=== PATIENT | male | born 1985 | race Caucasian/White ===

== ENCOUNTER 2021-08-04 20:24 | Observation (INO) ==
--- NOTE | 2021-08-04 20:51 | Emergency Department Note ---
Impression & Plan Hematoma DC ED Provider Note HPI: The patient is a 36-year-old gentleman who presents the emergency department with a chief complaint of left breast pain, patient is status post breast reduction surgery for gynecomastia this morning with Dr. Terrazas of plastic surgery. Patient states about an hour and a half prior to arrival to the ED he began to have some acute onset pain and swelling in the left breast area. On arrival here to the ED he is hemodynamically stable, he does have a postop surgical binder over his chest, bilateral CHARITY drains in place, states he has had some increased drainage from the left breast. Patient states he is actually already been in touch with Dr. Terrazas who is on the way to the emergency room to evaluate the patient. ROS: -Skin: Postoperative swelling/hematoma of the left breast *10 point review systems was conducted and is otherwise negative unless stated above *Outpatient medications and allergy history reviewed PE: General: Alert, NAD HEENT: Normocephalic, atraumatic Eyes: Extraocular eye movement is intact, no scleral erythema Pulmonary: Clear to auscultation bilaterally, no wheezing Cardio: Regular rate and rhythm GI: Abdomen is soft, nontender : No suprapubic tenderness MSK: No evidence of trauma or malformation of the extremities, no edema Skin: No evidence of rash, surgical binder is in place across the chest, patient does have significant swelling of the left pectoral area, bilateral CHARITY drains a ppear in place with appropriate drainage Neuro: Alert, no focal deficits Psychiatric: Cooperative monitoring analyst: - An order was placed for continuous cardiac monitoring - Patient was noted to be in sinus rhythm with rate of 80 Medical Decision Making: Patient presented to the emergency department with postoperative hematoma of the left breast area, he had breast reduction surgery done this morning for gynecomastia. Dr. Terrazas did evaluate the patient at the bedside, decision wa s made that the patient will undergo operative intervention for drainage of the hematoma by Dr. Terrazas. Lab work was obtained here in the ED and hemoglobin is noted to be stable, patient remained hemodynamically stable here in the ED, patient was transferred to the operating room in stable condition for further care. Diagnosis: 1. Postoperative hematoma of the left chest Disposition: Transfer to operating room Aram Benton DO Emergency Medicine Past Med/Surg History Medical History GERD (gastroesophageal reflux disease) History of asthma A CHILD/NO INHALER Low back pain Primary hypogonadism in male Seasonal allergies Surgical History Cyst RT ANKLE REMOVED *BENIGN History of esophagogastroduodenoscopy (EGD) History of surgical removal of pilonidal cyst [place] teeth removed Family History Grandmother (Paternal) Family history of diabetes mellitus Father Family history of diabetes mellitus Other Alzheimer disease Colorectal cancer Diabetes No family history of adverse response to anesthesia Social History (Updated 02/16/21 @ 17:04 by Fabio Lorenzana) Smoking Status: Former smoker Tobacco Type: Cigarettes Cigarettes Per Day: HAVE NOT USED CIG FOR 1 MONTH/ADVISED>PT UNDERSTANDS; Second Hand Exposure: Yes ( A CHILD); Hx Alcohol Use: Yes Alcohol Intake Frequency: 2-3 x/Week Hx Substance Use: No Preferred Language: Japanese 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 Required: No Beliefs That Will Affect Care: None Current Living Situation: Significant Other Feels Safe at Home: Yes Sunscreen Use: Yes Assistive Devices: Glasses Allergies Allergies Allergy/AdvReac Type Severity Reaction Status Date / Time No Known Allergies Allergy Verified 08/04/21 21:01 Home Meds Home Medications Medication Instructions Recorded Confirmed famotidine 20 mg tablet 20 mg PO QAM 02/16/21 08/04/21 cetirizine 10 mg tablet (Zyrtec) 10 mg PO DAILY PRN 03/21/21 08/04/21 azelastine 137 mcg (0.1 %) nasal 1 spray INTRANASAL BID PRN 07/31/21 08/04/21 spray aerosol multivitamin 1 tab PO DAILY 07/31/21 08/04/21 acetaminophen 500 mg tablet 500 - 1,000 mg PO DIRECTED PRN 08/04/21 08/04/21 (Tylenol Extra Strength) turmeric 400 mg capsule 400 mg PO DAILY 08/04/21 08/04/21 Previous Rx's Medication Instructions Recorded oxycodone-acetaminophen 5 mg-325 1 tab PO Q4H PRN #18 tab 07/18/21 mg tablet (Endocet) Results & Data (ED) Vital Signs Vital Signs - 24 hr 08/04/21 20:30 Temperature 36.5 C Temperature Source Temporal Artery Scan Pulse Rate 76 Respiratory Rate 14 Respiratory Effort / Characteristics Non-Labored Spontaneous Respiratory Depth Normal Blood Pressure 134/84 Blood Pressure Mean 100 Pulse Oximetry 100 Oxygen Delivery Method Room Air Sepsis Recent Fever Within 48 Hours No Sepsis New/Unexplained Change in Mental Status No Sepsis Action Taken by Nursing No Action Required Laboratory Data Result diagrams: 08/04/21 20:59 08/04/21 20:59 Lab Results 08/04/21 08/04/21 08/04/21 Range/Units 20:59 20:59 20:59 WBC 9.92 (4.8-10.8) K/uL RBC 4.12 L (4.7-6.1) M/uL Hgb 12.2 L (14.0-18.0) g/dL Hct 37.4 L (42-52) % MCV 90.8 (80-100) fL MCH 29.6 (25-34) pg MCHC 32.6 (32-36) g/dL RDW Std Deviation 47.0 H (36.4-46.3) fL RDW Coeff of Placido 14.1 (11.5-14.5) % Plt Count 203 (130-400) K/uL MPV 10.3 (7.4-10.4) fL Immature Gran % (Auto) 0.1 % Neut % (Auto) 74.2 % Lymph % (Auto) 14.2 % Bryan % (Auto) 10.3 % Eos % (Auto) 1.0 % Baso % (Auto) 0.2 % Neut # (Auto) 7.36 H (1.4-6.5) K/uL Lymph # (Auto) 1.41 (1.2-3.4) K/uL Bryan # (Auto) 1.02 H (0.11-0.59) K/uL Eos # (Auto) 0.10 (0-0.5) K/uL Baso # (Auto) 0.02 (0-0.2) K/uL Immature Gran # (Auto) 0.01 (0.00-0.02) K/uL PT 12.1 H (9.0-12.0) Seconds INR 1.1 (0.9-1.1) APTT 25.4 (21.0-31.0) Seconds PTT Ratio 0.9 Sodium 134 L (136-145) mmol/L Potassium TNP Chloride 102 (98-107) mmol/L Carbon Dioxide 28 (21-32) mmol/L Anion Gap 4 (3-11) BUN 13 (6-23) mg/dl Creatinine 0.72 (0.6-1.4) mg/dl Est Cr Clr Drug Dosing 149.6 ml/min Est GFR ( Amer) 138.1 ml/min Est GFR (Non-Af Amer) 119.2 ml/min BUN/Creatinine Ratio 18.1 (10-20) Glucose 139 H (70-99(Fasting)) mg/dl Calcium 8.8 (8.5-10.1) mg/dl Total Bilirubin 0.6 (0.2-1.0) mg/dl AST TNP ALT 19 (7-52) U/L Alkaline Phosphatase 44 (34-104) U/L Total Protein 6.4 (6.0-8.3) gm/dl Albumin 4.3 (3.4-5.0) gm/dl Globulin 2.1 L (2.5-4.0) gm/dl Albumin/Globulin Ratio 2.0 (0.9-2) Imaging Data Radiologist's Impression: Chest X-Ray 08/04/21 20:43 XR chest 1V portable HISTORY: 36 years-old Male Chest Pain acute atypical chest pain COMPARISON: None TECHNIQUE: AP view of the chest FINDINGS: Surgical drains project over the chest. There is a hazy ill-defined large opacity of the left chest wall which extends outside of the thoracic cavity. Cardiac silhouette is upper limits of normal in size. No pneumothorax, pleural effusion, airspace consolidation or overt pulmonary edema. IMPRESSION: 1. No acute cardiopulmonary abnormality. 2. Surgical drains project over the chest. There is a large left chest opacity, likely correlating with the reported chest wall hematoma. ACT 112: Negative or not required by law. The above report was generated using voice recognition software. It may contain grammatical, syntax or spelling errors. Electronically signed by: Andrew Bansal M.D. 08/04/2021 9:27 PM Discharge Plan Visit Data Chief Complaint: Chest Pain Stated Complaint: POSSIBLE HEMATOMA, L SIDE OF CHEST ED Provider: Aram Benton Discharge Problem: Hematoma Patient Disposition: Admitted As Inpatient Discharge Instructions Interventions: ED Discharge Assessment Last Done: 08/04/21 21:45 Forms Stand Alone Forms: [facility] Setup Prescriptions Prescriptions: No Action oxycodone-acetaminophen [Endocet] 5-325 mg tablet 1 tab PO Q4H PRN (Reason: pain) Qty: 18 RF: 0 famotidine 20 mg tablet 20 mg PO QAM RF: 0 cetirizine [Zyrtec] 10 mg tablet 10 mg PO DAILY PRN (Reason: ALLERGY RELIEF) RF: 0 acetaminophen [Tylenol Extra Strength] 500 mg Tablet 500 - 1,000 mg PO DIRECTED PRN (Reason: Pain) RF: 0 turmeric 400 mg Capsule 400 mg PO DAILY RF: 0 multivitamin Tablet 1 tab PO DAILY RF: 0 azelastine 137 mcg (0.1 %) Aerosol,[place] 1 spray INTRANASAL BID PRN (Reason: Congestion) RF: 0 Referrals Referrals: PCP,NO [Primary Care Provider] -
[2021-08-04 21:19] LABS: Basophils # (auto) 0.02 K/uL (0-0.2); Basophils % (auto) 0.2 %; Hematocrit (blood only) 37.4 % (42-52); Hemoglobin 12.2 g/dL (14.0-18.0); Immature Granulocytes # (auto) 0.01 K/uL (0.00-0.02); Immature Granulocytes % (auto) 0.1 %; Lymphocytes # (auto) 1.41 K/uL (1.2-3.4); Lymphocytes % (auto) 14.2 %; Mean Corpuscular Hemoglobin 29.6 pg (25-34); Mean Corpuscular Hgb Conc 32.6 g/dL (32-36); Mean Corpuscular Volume 90.8 fL (80-100); Mean Platelet Volume 10.3 fL (7.4-10.4); Monocytes # (auto) 1.02 K/uL (0.11-0.59); Monocytes % (auto) 10.3 %; Neutrophils # (auto) 7.36 K/uL (1.4-6.5); Neutrophils % (auto) 74.2 %; Platelet Count 203 K/uL (130-400); RDW Coefficient of Variation 14.1 % (11.5-14.5); Red Blood Count 4.12 M/uL (4.7-6.1); White Blood Count 9.92 K/uL (4.8-10.8)
--- NOTE | 2021-08-04 21:29 | XRay Report ---
XR chest 1V portable HISTORY: 36 years-old Male Chest Pain acute atypical chest pain COMPARISON: None TECHNIQUE: AP view of the chest FINDINGS: Surgical drains project over the chest. There is a hazy ill-defined large opacity of the left chest w all which extends outside of the thoracic cavity. Cardiac silhouette is upper limits of normal in siz e. No pneumothorax, pleural effusion, airspace consolidation or overt pulmonary edema. IMPRESSION: 1. No acute cardiopulmonary abnormality. 2. Surgical drains project over the chest. There is a large left chest opacity, likely correlating wi th the reported chest wall hematoma. ACT 112: Negative or not required by law. The above report was generated using voice recognition software. It may contain grammatical, syntax o r spelling errors. Electronically signed by: Andrew Bansal M.D. 08/04/2021 9:27 PM
--- NOTE | 2021-08-04 21:29 | History & Physical Report ---
Date of Service August 04, 2021 Assessment & Plan (1) Hematoma (nontraumatic) of breast: Plan: Exam consistent with expanding hematoma left breast. Plan is for OR for evacuation of hematoma left breast, possible exploration right breast. Consent obtained. History of Present Illness Chief Complaint: Left breast hematoma Primary Care Provider: NO PCP 36-year-old male, postoperative day 0 from bilateral correction of gynecomastia, contacted me via answering service this evening with rapidly expanding hematoma left chest. Started to notice some increase in swelling late afternoon, began to rapidly expand over the last couple of hours. Reported at least 40 cc of bloody drain output, but drain was functioning. Reports worsening pain. Has recently taken 2 Percocet. Last ate about 3 hours ago. Procedure earlier today was uneventful. Allergies Allergy/AdvReac Type Severity Reaction Status Date / Time No Known Allergies Allergy Verified 08/04/21 21:01 Home Medications Medication Instructions Recorded Confirmed Type famotidine 20 mg tablet 20 mg PO QAM 02/16/21 08/04/21 History cetirizine 10 mg tablet (Zyrtec) 10 mg PO DAILY PRN 03/21/21 08/04/21 History oxycodone-acetaminophen 5 mg-325 1 tab PO Q4H PRN #18 tab 07/18/21 08/04/21 Rx mg tablet (Endocet) azelastine 137 mcg (0.1 %) nasal 1 spray INTRANASAL BID PRN 07/31/21 08/04/21 History spray aerosol multivitamin 1 tab PO DAILY 07/31/21 08/04/21 History acetaminophen 500 mg tablet 500 - 1,000 mg PO DIRECTED PRN 08/04/21 08/04/21 History (Tylenol Extra Strength) turmeric 400 mg capsule 400 mg PO DAILY 08/04/21 08/04/21 History Past Med/Surg History Medical History GERD (gastroesophageal reflux disease) History of asthma A CHILD/NO INHALER Low back pain Primary hypogonadism in male Seasonal allergies Surgical History Cyst RT ANKLE REMOVED *BENIGN History of esophagogastroduodenoscopy (EGD) History of surgical removal of pilonidal cyst [place] teeth removed Family History Grandmother (Paternal) Family history of diabetes mellitus Father Family history of diabetes mellitus Other Alzheimer disease Colorectal cancer Diabetes No family history of adverse response to anesthesia Social History (Updated 02/16/21 @ 17:04 by Fabio Lorenzana) Smoking Status: Former smoker Tobacco Type: Cigarettes Cigarettes Per Day: HAVE NOT USED CIG FOR 1 MONTH/ADVISED>PT UNDERSTANDS; Second Hand Exposure: Yes ( A CHILD); Hx Alcohol Use: Yes Alcohol Intake Frequency: 2-3 x/Week Hx Substance Use: No Preferred Language: Marshallese Photograph Printer Required: No Beliefs That Will Affect Care: None Current Living Situation: Significant Other Feels Safe at Home: Yes Sunscreen Use: Yes Assistive Devices: Glasses Review of Systems Constitutional: as per Subjective / HPI Respiratory: no problem reported Cardiovascular: no problem reported Integumentary: as per Subjective / HPI Physical Exam Constitutional: WD/WN, vitals as above Respiratory: normal respiratory effort, lungs clear to auscultation Cardiovascular: RRR, no murmur, no edema Chest (Breasts): Additional Comments: left breast ecchymotic, grapefruit sized. Drain bloody, about 50 cc right breast with minimal swelling, bright red drainage Psychiatric: A+Ox3, euthymic affect Results & Data Results & Data ([facility]) Vital Signs (Past 12 Hours) Vital Signs Temp Pulse Resp BP Pulse Ox 08/04/21 20:30 97.7 F 76 14 134/84 100 Laboratory Results Hgb 12.2
[2021-08-04] MEDS ORDERED: LIDOCAINE 1%/EPINEPHRINE 1:100,000 50 ML VIAL ONE (21:33)
[2021-08-04] MEDS ORDERED: BUPIVACAINE 0.25% 30 ML VIAL ONE (21:33)
[2021-08-04] MEDS ORDERED: ceFAZolin 330 MG/ML 1 GM VIAL ONE ×2 (21:33→23:00)
[2021-08-04 21:35] LABS: INR 1.1 (0.9-1.1); Partial Thromboplastin Ratio 0.9; Partial Thromboplastin Time 25.4 Seconds (21.0-31.0); Prothrombin Time 12.1 Seconds (9.0-12.0)
[2021-08-04] MEDS ORDERED: MIDAZOLAM HCL 1 MG/ML 2ML VIAL ONE (21:52)
[2021-08-04] MEDS ORDERED: PROPOFOL IV EMULSION 10 MG/ML 20 ML VIAL IV ONE (21:53)
[2021-08-04] MEDS ORDERED: ROCURONIUM BROMIDE 10 MG/ML 5 ML VIAL IV ONE (21:53)
[2021-08-04] MEDS ORDERED: ONDANSETRON INJ 2 MG/ML 2 ML VIAL ONE (21:53)
[2021-08-04] MEDS ORDERED: fentaNYL citrate 100 MCG/2 ML VIAL ONE (21:53)
[2021-08-04] MEDS ORDERED: NEOSTIGMINE METHYLSULFATE 1 MG/ML 10ML VIAL ONE (21:54)
[2021-08-04] MEDS ORDERED: GLYCOPYRROLATE 0.2 MG/ML VIAL ONE (21:54)
[2021-08-04 22:00] LABS: Alanine Aminotransferase 19 U/L (7-52); Albumin Level 4.3 gm/dl (3.4-5.0); Alkaline Phosphatase 44 U/L (34-104); Anion Gap 4 (3-11); BUN Creatinine Ratio 18.1 (10-20); Bilirubin,Total 0.6 mg/dl (0.2-1.0); Blood Urea Nitrogen 13 mg/dl (6-23); Calcium 8.8 mg/dl (8.5-10.1); Carbon Dioxide 28 mmol/L (21-32); Chloride 102 mmol/L (98-107); Creatinine Clr Calc Pharmacy 149.6 ml/min; Est GFR (African American) 138.1 ml/min; Est GFR (Non-African American) 119.2 ml/min; Globulin 2.1 gm/dl (2.5-4.0); Glucose 139 mg/dl (70-99(Fasting)); Sodium 134 mmol/L (136-145); Total Protein 6.4 gm/dl (6.0-8.3)
[2021-08-04] MEDS ORDERED: ePHEDrine sulfate 50 MG/ML SYR ONE (22:54)
[2021-08-04] MEDS ORDERED: ARISTA ABSORBABLE HEMOSTAT 3GM TOP ONE (23:57)
[2021-08-04] MEDS ORDERED: TISSEEL FIBRIN SEALANT 10ML TOP ONE (23:58)
--- NOTE | 2021-08-05 00:14 | Post Operative Brief Note ---
PG Immediate Post Op with CF Date of Surgery August 05, 2021 Pre & Post Diagnosis Operation Date: 08/04/21 23:00 Pre-Op Diagnosis: Hematoma (nontraumatic) of left breast Post-Op Diagnosis: Hematoma (nontraumatic) of left breast I identified the patient and participated in the time-out.: Yes Procedure Operation Date: 08/04/21 23:00 Actual Procedures p Evacuation of Expanding Hematoma, Left Breast(Left) - Stefanie Terrazas MD Surgeon Stefanie Terrazas MD Mesmerist Carlo Campbell DO Estimated Blood Loss 500 Findings See Below large hematoma left breast (500 cc clot and blood), small bleeding vessel left lateral chest wall Specimens Specimen Description: None per surgeon Drains Romero-Cuellar Drain (Drain removed prior to case start; new drain inserted prior to closing) Anesthesia Type General Complications none
[2021-08-05] MEDS ORDERED: oxyCODONE/ACETAMINOPHEN 5mg/325mg TAB PO PRN ×2 (00:35)
[2021-08-05] MEDS ORDERED: ONDANSETRON INJ 2 MG/ML 2 ML VIAL IV PRN ×3 (00:35→01:31)
[2021-08-05] MEDS ORDERED: ACETAMINOPHEN 325 MG TAB PO PRN (00:35)
--- NOTE | 2021-08-05 00:38 | Operative Report ---
PG Post Operative Report Pre & Post Diagnosis Operation Date: 08/04/21 23:00 Pre-Op Diagnosis: Hematoma (nontraumatic) of left breast Post-Op Diagnosis: Hematoma (nontraumatic) of left breast I identified the patient and participated in the time-out.: Yes Procedure Operation Date: 08/04/21 23:00 Actual Procedures p Evacuation of Expanding Hematoma, Left Breast(Left) - Stefanie Terrazas MD Surgeon Stefanie Terrazas MD Hotel Front Desk Clerk Carlo Campbell DO Estimated Blood Loss 700 Findings See Below Specimens none Anesthesia Type General Complications none Indications Postop day 0 status post bilateral correction of gynecomastia with acute onset of rapid swelling left breast consistent with hematoma Description of Procedure The risks, benefits, alternatives of procedure explained the patient agreed and signed consent. He was identified and marked in the emergency department, transferred to the operating room and placed under general anesthesia. Dressings were removed from both the left and right breast. Left breast was extremely distended and ecchymotic. Drain had about [address] Drain was removed prior to prepping. The surgical site was prepped and draped in usual fashion. Timeout procedure was performed. Suture scissor was used to remove the sutures from the left nipple areolar complex incision. Upon reopening the incision, large amount of clot (approximately 500 cc) was encountered and was evacuated from the pocket. There was noted to be a combination of active blood and clot. Pocket was irrigated with antibiotic irrigation. A small actively bleeding vessel was identified on the lateral border of the pectoralis major muscle. Suture ligation was performed. The remainder of the pocket was examined for hemostasis. Multiple small areas of oozing but no active bleeding were encountered. Wound was copiously irrigated with normal saline. It was packed with Surgicel and reexamined. There is noted to be ecchymosis of the surrounding soft tissue and infiltration of the pectoralis major muscle. Tisseel was sprayed into the pocket followed by Kris. A new CHARITY drain was placed and brought out through the previous stab incision. Once I was satisfied with hemostasis, the wound was reapproximated using 3-0 Vicryl interrupted suture to reapproximate underlying subcutaneous tissue, 4-0 Vicryl dermal sutures were placed followed by 4-0 Monocryl running subcuticular suture. Dermabond was applied. New reston foam was applied. Abdominal binder was placed around the chest to provide compression. He was awakened and transferred to recovery in satisfactory condition. Carlo Campbell DO was scrubbed thoughout the procedure to assist in retraction and hemostasis. I attest to the content of the Intraoperative Record and any orders documented therein. Any exceptions are noted below.
[2021-08-05] MEDS ORDERED: ATROPINE SULFATE 0.1 MG/ML 10ML SYR IV PRN (00:54)
[2021-08-05] MEDS ORDERED: PROMETHAZINE HCL 12.5 MG in SODIUM CHLORIDE 0.9% 50 ML IV PRN ×2 (00:54→01:31)
[2021-08-05] MEDS ORDERED: ePHEDrine sulfate 50 MG/ML AMP IV PRN (00:54)
[2021-08-05] MEDS ORDERED: fentaNYL citrate 100 MCG/2 ML VIAL IV PRN (00:54)
[2021-08-05] MEDS ORDERED: HYDROmorphone INJ 2 MG/ML SYR/VIAL IV PRN (00:54)
--- NOTE | 2021-08-05 00:55 | Anesthesiology Progress Note ---
Date of Service August 05, 2021 Anesthesia Post Procedure Vital Signs Vital Signs: Temp Pulse Pulse Resp BP BP Pulse Ox 08/05/21 00:35 63 17 130/88 100 08/05/21 00:25 36 C L 68 14 114/95 100 08/04/21 20:30 36.5 C 76 14 134/84 100 Pain Intensity Chest: Pain Intensity: 5 Transfer of Care Handoff Completed per policy Notes Mental Status: alert / awake / arousable and participated in evaluation Patient Amnestic to Procedure: Yes Nausea / Vomiting: adequately controlled Pain: adequately controlled Airway Patency, RR, SpO2: stable & adequate BP & HR: stable & adequate Hydration State: stable & adequate Anesthetic Complications: no major complications apparent
[2021-08-05] MEDS ORDERED: fentaNYL citrate 100 MCG/2 ML VIAL ONE (01:04)
[2021-08-05] MEDS ORDERED: ONDANSETRON INJ 2 MG/ML 2 ML VIAL ONE (01:04)
[2021-08-05] MEDS ORDERED: MoRPHine SULFATE 2 MG/ML CARP IV PRN (01:31)
[2021-08-05] MEDS ORDERED: LORazepam 0.5 MG TAB PO PRN (01:31)
[2021-08-05] MEDS ORDERED: MoRPHine SULFATE 4 MG/ML 1 ML CARP\\VIAL IV PRN (01:31)
[2021-08-05] MEDS ORDERED: diphenhydrAMINE Capsule 25 MG CAP PO PRN (01:31)
--- NOTE | 2021-08-05 01:40 | Surgery Progress Note ---
Date of Service August 05, 2021 Assessment & Plan (1) Hematoma: Plan: Doing well postop. No concern for any further bleeding. Due to nausea, need for pain control will observe overnight. Subjective Patient seen in recovery. Complaining of nausea, some pain left chest. Physical Exam Physical Exam: No hematomas noted CHARITY drains left 5 cc, right 10 cc, serosanguinous Results & Data ([facility]) Vital Signs (Past 12 Hours) Vital Signs Temp Pulse Pulse Resp BP BP Pulse Ox 08/05/21 01:35 64 16 145/96 H 100 08/05/21 01:25 66 18 132/79 100 08/05/21 01:15 51 L 19 122/84 100 08/05/21 01:05 55 L 12 128/83 100 08/05/21 00:55 59 L 18 131/83 100 08/05/21 00:45 62 15 136/79 100 08/05/21 00:35 63 17 130/88 100 08/05/21 00:25 96.8 F L 68 14 114/95 100 08/04/21 20:30 97.7 F 76 14 134/84 100 PG Care Time/CCT Total # of Minutes Spent Total Time Spent with Patient: Total time spent is greater than 50% in coordination of care (as documented) at patient's floor/unit and/or counseling patient: Coding Level of Care Code None Diagnoses Hematoma T14.8XXA
[2021-08-05] MEDS ORDERED: LACTATED RINGER'S 1,000 ML IV SCH (01:45)
[2021-08-05 06:44] LABS: Basophils # (auto) 0.01 K/uL (0-0.2); Basophils % (auto) 0.2 %; Eosinophils # (auto) 0.01 K/uL (0-0.5); Eosinophils % (auto) 0.2 %; Hemoglobin 10.8 g/dL (14.0-18.0); Lymphocytes % (auto) 14.5 %; Mean Corpuscular Hemoglobin 29.2 pg (25-34); Mean Corpuscular Hgb Conc 32.7 g/dL (32-36); Mean Corpuscular Volume 89.2 fL (80-100); Mean Platelet Volume 10.4 fL (7.4-10.4); Monocytes # (auto) 0.58 K/uL (0.11-0.59); Monocytes % (auto) 9.3 %; Neutrophils # (auto) 4.71 K/uL (1.4-6.5); Neutrophils % (auto) 75.8 %; Platelet Count 190 K/uL (130-400); RDW Coefficient of Variation 14.2 % (11.5-14.5); RDW Standard Deviation 46.7 fL (36.4-46.3); White Blood Count 6.21 K/uL (4.8-10.8)
--- NOTE | 2021-08-05 08:01 | Surgery Progress Note ---
Date of Service August 05, 2021 Assessment & Plan (1) Hematoma: (2) Gynecomastia: Plan: Plan is for discharge today. There is no further evidence of bleeding, pain is controlled. I will send a prescription for Zofran as he does report occasional nausea with use of Percocet. He has office follow-up scheduled for August 07. Dressings will remain intact until that time. He will contact me with any further concerns. Admission and Anticipated Discharge Date Admission Date: August 05, 2021 Subjective Postoperative day 1 status post bilateral correction of gynecomastia, evacuation left breast hematoma. Reports no further symptoms of nausea, pain is controlled. No issues overnight. Physical Exam Physical Exam: Binder intact to chest. Drains functioning, right breast 40 cc, left breast 47 cc of serosanguineous drainage. Chest is soft, no evidence of recurrent hematoma. Hemoglobin this a.m. 10.8 Results & Data ([facility]) Vital Signs (Past 12 Hours) Vital Signs Temp Pulse Pulse Pulse Resp BP BP 08/05/21 05:37 98.2 F 79 18 112/73 08/05/21 04:39 98.1 F 83 16 123/67 08/05/21 03:32 98.4 F 80 16 96/63 L 08/05/21 03:31 98.4 F 66 20 113/66 08/05/21 03:00 97.7 F 66 18 114/71 08/05/21 02:30 98.4 F 70 18 122/77 08/05/21 02:05 61 13 123/78 08/05/21 01:55 97.9 F 66 17 123/79 08/05/21 01:45 62 17 125/82 08/05/21 01:35 64 16 145/96 H 08/05/21 01:25 66 18 132/79 08/05/21 01:15 51 L 19 122/84 08/05/21 01:05 55 L 12 128/83 08/05/21 00:55 59 L 18 131/83 08/05/21 00:45 62 15 136/79 08/05/21 00:35 63 17 130/88 08/05/21 00:25 96.8 F L 68 14 114/95 08/04/21 20:30 97.7 F 76 14 134/84 Pulse Ox 08/05/21 05:37 97 08/05/21 04:39 97 08/05/21 03:32 98 08/05/21 03:31 95 08/05/21 03:00 97 08/05/21 02:30 98 08/05/21 02:05 100 08/05/21 01:55 97 08/05/21 01:45 99 08/05/21 01:35 100 08/05/21 01:25 100 08/05/21 01:15 100 08/05/21 01:05 100 08/05/21 00:55 100 08/05/21 00:45 100 08/05/21 00:35 100 08/05/21 00:25 100 08/04/21 20:30 100 PG Care Time/CCT Total # of Minutes Spent Total Time Spent with Patient: Total time spent is greater than 50% in coordination of care (as documented) at patient's floor/unit and/or counseling patient: Coding Level of Care Code None Diagnoses Hematoma T14.8XXA Gynecomastia N62
--- NOTE | 2021-08-05 08:08 | Discharge Summary ---
Date of Service August 05, 2021 Admission HPI Per Admitting Provider 36-year-old male, postoperative day 0 from bilateral correction of gynecomastia, contacted me via answering service this evening with rapidly expanding hematoma left chest. Started to notice some increase in swelling late afternoon, began to rapidly expand over the last couple of hours. Reported at least 40 cc of bloody drain output, but drain was functioning. Reports worsening pain. Has recently taken 2 Percocet. Last ate about 3 hours ago. Procedure earlier today was uneventful. Admission Exam (Per Admitting) Constitutional WD/WN, vitals as above Respiratory normal respiratory effort, lungs clear to auscultation Cardiovascular RRR, no murmur, no edema Skin Hematoma left chest with ecchymosis Psychiatric A+Ox3, euthymic affect Discharge Data Procedures Performed Operation Date: 08/04/21 23:00 Actual Procedures p Evacuation of Expanding Hematoma, Left Breast(Left) - Stefanie Terrazas MD Hospital Course (1) Hematoma: Patient was brought to the operating room last evening, 500 cc hematoma evacuated from left breast. Postoperative course was uneventful. He was discharged home with stable vital signs, hemoglobin 10.8, appropriate drain output. Instructions were provided. Coding Level of Care Code None Diagnoses Hematoma T14.8XXA
[2021-08-05] MEDS ORDERED: MULTIVITAMIN TAB PO SCH (09:00)
== END 2021-08-05 10:16 | disposition home or self-care (01) ==
LOC: ED 20:24 → 3N 21:45 → OR 21:45